=== PATIENT | female | born 2005 | race Caucasian/White ===

== ENCOUNTER 2023-04-03 14:45 | Emergency (ER) | payer SELFPAY ==
[2023-04-03] MEDS ORDERED: Lidocaine 1% (PF) 30 ML VIAL ONE (15:23)
[2023-04-03] MEDS ORDERED: Boostrix 0.5 ML (Tdap) VIAL (>/=7 yrs of age) ONE (15:59)
[2023-04-03] MEDS ORDERED: Bacitracin 1 PK ONE (17:06)
== END 2023-04-03 17:23 | disposition home or self-care (01) ==
LOC: CSHERS 14:45
DX: S61.412A Laceration without foreign body of left hand, initial encounter (principal); W26.0XXA Contact with knife, initial encounter; Z23 Encounter for immunization
CPT/HCPCS: 12002; 90471; 90715; J2001

== ENCOUNTER 2023-04-12 13:42 | Emergency (ER) | payer MEDICAID, SELFPAY | END 2023-04-12 16:22 | disposition home or self-care (01) | LOC: CSHERS 13:42 | DX: S61.412D Laceration without foreign body of left hand, subsequent encounter (principal) ==